=== PATIENT | female | born 1960 | race Caucasian/White ===

== ENCOUNTER → 2016-10-14 | Day surgery (SDC) | payer OTHER ==
[~2016-10-14] MED LIST: ACULAR10 ML; ACULAR10 ML OT; ALBUTEROL17 GM INH; ATENOLOL PO; BACTRIM DS TABL1 TAB PO; CELEXA PO; CHANTIX PO; CIPRO HC OTIC S10 ML OT; CIPRO PO; COMBIVENT INH14.7 GM INH; DIAZEPAM PO; DULOXETINE HCL60 MG PO; LEVAQUIN PO; LORTAB 10-3251 EACH PO; LORTAB 10/500 T1 TAB PO; LYRICA PO; MIDODRINE HCL2.5 MG PO; NORCO 10/325 TA1 TAB PO; PAXIL PO; PHENERGAN PO; PREDNISONE PO; TOPAMAX PO; VIT B-12 PO; VITAMIN C PO; ZANTAC PO
--- NOTE | ~2016-10-14 | EKG ---
PATIENT: DAT TORREZ UNIT #: [id number] Ventricular Rate: 58 BPM Atrial Rate: 58 BPM P-R Interval: 134 ms QRS Duration: 80 ms Q-T Interval: 426 ms QTC Calculation(Bezet): 418 ms P [place]: 73 degrees Calculated R [place]: 42 degrees Calculated T [place]: 55 degrees Diagnosis Line: Sinus bradycardia Diagnosis Line: Otherwise normal ECG Diagnosis Line: No previous ECGs available Diagnosis Line: Confirmed by BRAULIO SANDHU MD ([id number]) on 10/16/2016 Diagnosis Line: 2:55:27 PM INTERPRETING MD: PHOEBE MERLOS
--- NOTE | ~2016-10-14 | OR ---
Unit #: [id number] #: [id number] Patient: DAT TORREZ [id number] [address] [place], [place] [address] [id number] MR#: [id number] NAME: DAT TORREZ ROOM: Date of Procedure: 10/14/2016 Admission Date: 10/14/2016 Surgeon: Lang Steinberg M.D. : 1960 Attending Physician: Lang Steinberg M.D. Primary Care Physician: Rick Harris M.D. OPERATIVE REPORT PREOPERATIVE DIAGNOSES 1. Chronic intractable low back pain. 2. Multilevel degenerative disk disease. POSTOPERATIVE DIAGNOSIS 1. Chronic intractable low back pain. 2. Multilevel degenerative disk disease. PROCEDURES PERFORMED 1. Implantation of SynchroMed II intrathecal pump implantation. 2. Implantation of Ascenda catheter. 3. Physician filling of pump. 4. Fluoroscopy. SURGICAL INDICATION AND RATIONALE Ms. Monica Birch is a pleasant 56-year-old female, who has been having intractable low back pain with multiple joint involvement associated with arthritis. The patient has tried conservative treatment options such as nonsteroidal anti-inflammatory medications, muscle relaxants, oral opioid injections like epidurals and radiofrequency ablation, all of which did not help her pain. The patient did have an epidural pain pump trial using hydromorphone, in which she had about 80% to 90% relief of pain. The patient has had a cardiac evaluation along with a psychological evaluation, both of which did not show any contraindications. The patient also had an in-detailed discussion with me regarding the risks, benefits, and alternatives available in addition to the consent decree. All the patient's questions were answered to her satisfaction and I used a teach-back method to make sure that the patient understood my explanation. The patient also had an education process with Janette Monroy, who is the [employer] sales representative cash registers regarding the consent decree and all her questions were answered to her satisfaction. DESCRIPTION OF PROCEDURE After obtaining full informed consent and after discussion with the patient of possible complications including infection, bleeding, paralysis, spinal headaches, , and other perioperative complications were discussed with the patient and consent obtained in front of the nurse, Deb. The patient was then taken back to the operating room, where a time-out was done in accordance to the joint commission guidelines where the patient's identity, procedure, and site of procedure were verified. The patient received antibiotics 30 minutes before entering the operating room. The anesthesiologist then induced general anesthesia. Unit #: [id number] #: [id number] Patient: DAT TORREZ The patient was then positioned in the left lateral decubitus position. The patient was then prepped and draped in the usual fashion. Then, I made an incision measuring 5 cm in length in the right side of her abdomen after the skin target sites were anesthetized. This was meant to create a pocket to house the SynchroMed II pump. After this was done, the pocket was copiously irrigated with irrigant. I then used fluoroscopy to identify the L2-L3 interspace and after the skin target sites were anesthetized, I made a 31/2-inch incision in the midline of her back and with the help of the Bovie, I was able to undermine the subcutaneous tissue to be able to place the Tuohy needle along with the anchor. I then used a 17-gauge Tuohy needle to access the intrathecal space, which I was able to achieve at first pass. Clear flow of CSF was seen and then I navigated an Ascenda catheter through the Tuohy needle to reach the upper border of T7 under live fluoroscopic view. Once this was done, the stylet along with the Tuohy needle were removed and I used a special anchoring device to anchor this catheter to the interspinous ligament. The catheter was further fortified using 3-0 Prolene sutures. This incision was then copiously irrigated with irrigant. I then used a tunneling device to tunnel this catheter from the lumbar incision into the abdominal incision. This catheter was cut to size and I used a special adapter to connect this catheter to a second piece of catheter, which was connected to the [employer] II pump. I then aspirated the side-port using a 24-gauge Pryor needle and clear flow of CSF was seen. The pump was then anchored to the underlying tissue using 3-0 Prolene sutures. Prior to doing that, I placed a TyRx pouch and antibiotic impregnated pouch at the base of the pocket. The two incisions were then carefully inspected and closed using 3-0 interrupted Vicryl sutures and the skin was approximated with liv. The patient was then brought back to the recovery room for neurological monitoring. The patient's pump was filled by me using hydromorphone at a concentration of 5 mg/mL. Her daily dose was going to be 0.24 mg per day and the patient has the ability to access the patient therapy monitor at 0.02 mg with maximum of 2 activations per day. PLAN OF CARE The patient had an uneventful recovery and was discharged home neurologically intact with plans to return to my office in 7 days to have her liv removed. The patient's [employer] pump serial #[id number]. Dictated by... Bobo Petty/sara TD: 10/14/2016 11:53 JOB #: [id number] OPERATIVE REPORT Page 1 of 1 X Lang Steinberg MD X PROCEDURE OPERATIVE NOTE
== END | disposition home or self-care (01) ==
LOC: CSUR 05:49
DX: G89.4 Chronic pain syndrome (principal); M51.36 Other intervertebral disc degeneration, lumbar region; M19.90 Unspecified osteoarthritis, unspecified site; K21.9 Gastro-esophageal reflux disease without esophagitis; J44.9 Chronic obstructive pulmonary disease, unspecified; F17.210 Nicotine dependence, cigarettes, uncomplicated; Z87.01 Personal history of pneumonia (recurrent); Z88.5 Allergy status to narcotic agent; Z79.899 Other long term (current) drug therapy; Z79.891 Long term (current) use of opiate analgesic; Z90.49 Acquired absence of other specified parts of digestive tract; Z98.818 Other dental procedure status; Z98.890 Other specified postprocedural states
CPT/HCPCS: 77003; 93005; C1772; J0690; J1100; J1170; J1885; J2250; J2270; J2765; J3370